=== PATIENT | male | born 1965 | race Caucasian/White ===

== ENCOUNTER 2021-06-02 19:57 | Emergency (ER) | payer BC ==
[~2021-06-02] VITALS: Ht 175.3 cm; Wt 127.0 kg
[2021-06-02 20:50] VITALS: BP 138/61
--- NOTE | 2021-06-02 20:50 | NUR ---
TO [facility]
--- NOTE | 2021-06-02 21:50 | NUR ---
SEEN AND EXAMINED BY GAETANO WITH ORDERS AND CARRIED OUT.
[2021-06-02] MEDS ORDERED: DEXAMETHASONE 4 MG TAB PO ONE (21:55)
--- NOTE | 2021-06-02 21:55 | NUR ---
MEDICATED PER ERMDS ORDER, TOLERATED WELL.
--- NOTE | 2021-06-02 22:30 | NUR ---
RESULT BACK , NOTED BY ERMD, AND FOR D/C
[2021-06-02 22:34] VITALS: BP 138/61
--- NOTE | 2021-06-02 22:34 | NUR ---
Patient discharged with v/s stable. Written and verbal after care instructions given and explained. Patient alert, oriented and verbalized understanding of instructions. Ambulatory with steady gait. All questions addressed prior to discharge. ID band removed. Patient advised to follow up with PMD. Patient educated on indication of medication including possible reaction and side effects. Opportunity to ask questions provided and answered.
== END 2021-06-02 22:34 | disposition home or self-care (01) ==
LOC: MED 19:57
DX: U07.1 COVID-19 (principal); E11.9 Type 2 diabetes mellitus without complications; I10 Essential (primary) hypertension
CPT/HCPCS: 71045; 99283

== ENCOUNTER 2021-06-03 08:34 | Emergency (ER) | payer BC, SELFPAY ==
[~2021-06-03] VITALS: Ht 175.3 cm; Wt 129.3 kg
[2021-06-03 08:55] VITALS: BP 134/285
--- NOTE | 2021-06-03 09:10 | NUR ---
TENT 1.
--- NOTE | 2021-06-03 09:30 | NUR ---
bib self . covid+, follow up for monoclonal antibody for management of covid infection. c/o cough, 5/10 broderick, conjestion x 3 days. seen here last night. PMH: HTN, DM
[2021-06-03] MEDS ORDERED: COMMUNICATION ORDER MC ONE (10:40)
--- NOTE | 2021-06-03 10:46 | NUR ---
Per Valorie at pharmacy, pharmacist aware of order.
--- NOTE | 2021-06-03 10:50 | NUR ---
PT AMBULATED TO BED 2.
--- NOTE | 2021-06-03 11:00 | NUR ---
Patient resting comfortably in bed; VSS; call light within reach and bed locked in the lowest position.
--- NOTE | 2021-06-03 12:00 | NUR ---
Patient resting comfortably in bed; VSS; call light within reach and bed locked in the lowest position.
--- NOTE | 2021-06-03 12:59 | NUR ---
Patient resting comfortably in bed; VSS; call light within reach and bed locked in the lowest position.
[2021-06-03] MEDS ORDERED: MISC INJECTION 1 EA in NACL 0.9% 100 ML IV SCH (14:00)
--- NOTE | 2021-06-03 14:01 | NUR ---
Patient resting comfortably in bed; VSS; call light within reach and bed locked in the lowest position.
[2021-06-03 15:07] VITALS: BP 147/93
--- NOTE | 2021-06-03 15:07 | NUR ---
Patient discharged with v/s stable. Written and verbal after care instructions given and explained. Patient verbalized understanding. Ambulatory with steady gait. All questions addressed prior to discharge. Advised to follow up with PMD.
--- NOTE | 2021-06-06 19:29 | NUR ---
LATE ENTRY- MISC INJECTION COMPLETED AT 1410
== END 2021-06-03 15:07 | disposition home or self-care (01) ==
LOC: MED 08:34
DX: U07.1 COVID-19 (principal); E11.9 Type 2 diabetes mellitus without complications; I10 Essential (primary) hypertension
CPT/HCPCS: 96365; 99284